=== PATIENT | female | born 1980 | race African-American/Black ===

== ENCOUNTER 2019-12-27 21:50 | Emergency (ER) | payer SELFPAY ==
[~2019-12-27] VITALS: Ht 154.9 cm; Wt 76.7 kg
--- NOTE | 2019-12-27 22:00 | NUR ---
PT CAME TO THE ER C/O MIDSTERNAL PRESSURE-LIKE TIGHT CHEST PAIN RD TO THE UPPER BACK AND ACROSS THE RIB AREA X 2 DAYS. WORSE TODAY. -SOB +LIGHTHEADED. PT AAOX4, VSS, RESPIRATIONS EVEN AND UNLABORED ON RA W/ NAD NOTED. PT CONNECTED TO THE GREEN [employer] VALUE ADDED ASSESSOR AND POX.
--- NOTE | 2019-12-27 22:04 | NUR ---
Natasha kellogg in [facility] - 12/27/19 at 2204 by SHANAE Patient discharged to home in stable condition. Written and verbal after care instructions given. Patient verbalizes understanding of instruction.
--- NOTE | 2019-12-27 22:19 | NUR ---
DR POLLOCK AT BEDSIDE
[2019-12-27] MEDS ORDERED: KETOROLAC TROMETHAMINE INJ 30 MG/ML VIAL ONE (22:22)
[2019-12-27] MEDS ORDERED: KETOROLAC TROMETHAMINE INJ 30 MG/ML VIAL IV ONE (22:30)
--- NOTE | 2019-12-27 22:34 | NUR ---
EKG AT BEDSIDE
--- NOTE | 2019-12-27 22:34 | NUR ---
BLOOD COLLECTED AND SENT TO LAB
[2019-12-27] MEDS ORDERED: diphenhydrAMINE HCL 50 MG/ML VIAL ONE (22:42)
[2019-12-27 22:51] LABS: BASOPHILS # (AUTO) 0.1 /CMM (0.0-0.2); BASOPHILS % (AUTO) 1.1 % (0.0-2.0); EOSINOPHILS % (AUTO) 2.2 % (0.0-6.0); HEMATOCRIT 36 % (33-45); HEMOGLOBIN 11.6 g/dL (11.5-14.8); LYMPHOCYTES # (AUTO) 2.6 /CMM (0.8-4.8); LYMPHOCYTES % (AUTO) 37.8 % (20.0-44.0); MEAN CORPUSCULAR HGB CONC 32 g/dl (31.0-36.0); MEAN CORPUSCULAR VOLUME 82 fL (82-100); MONOCYTES # (AUTO) 0.4 /CMM (0.1-1.30); MONOCYTES % (AUTO) 5.9 % (2.0-12.0); NEUTROPHILS # (AUTO) 3.6 /CMM (1.8-8.9); PLATELET COUNT (AUTO) 274 /CMM (150-450); RED BLOOD CELL COUNT(AUTO) 4.42 MIL/uL (4.0-5.2); WHITE BLOOD COUNT (AUTO) 6.8 K/uL (4.3-11.0)
[2019-12-27] MEDS ORDERED: diphenhydrAMINE HCL 50 MG/ML VIAL IV ONE (23:00)
[2019-12-27 23:09] LABS: CALCIUM, SERUM 8.7 mg/dL (8.5-10.1); CARBON DIOXIDE 25 mmol/L (21-32); CHLORIDE 103 mmol/L (98-107); CREATININE 0.8 mg/dL (0.6-1.3); GLUCOSE 101 mg/dL (74-106); POTASSIUM 3.8 mmol/L (3.5-5.1); SODIUM SERUM 139 mmol/L (136-145); UREA NITROGEN, BLOOD 5 mg/dL (7-18)
--- NOTE | 2019-12-28 00:01 | NUR ---
Patient discharged to home in stable condition. Written and verbal after care instructions given. Patient verbalizes understanding of instruction.IV removed. Catheter intact and site benign. Pressure and 4x4 applied to site. No bleeding noted.
[2019-12-28 00:02] VITALS: BP 135/79
== END 2019-12-28 00:02 | disposition home or self-care (01) ==
LOC: ER 21:50
DX: R07.89 Other chest pain (principal); M79.18 Myalgia, other site; R00.1 Bradycardia, unspecified; Z90.49 Acquired absence of other specified parts of digestive tract; Z41.1 Encounter for cosmetic surgery
CPT/HCPCS: 36415; 71045; 80048; 84484; 85025; 93005; 96374; 96375; 99285; J1200; J1885

== ENCOUNTER 2021-10-27 11:15 | Emergency (ER) | payer OTHER ==
[~2021-10-27] VITALS: Ht 154.9 cm; Wt 80.3 kg
--- NOTE | 2021-10-27 11:45 | NUR ---
Patient came in to the er c/o chest sharp pain radiating to R arm since yesterday. On room air, breathing evenly and unlabored. Kept comfortable, will continue to monitor accordingly.
[2021-10-27 12:34] LABS: BASOPHILS % (AUTO) 1.1 % (0.0-2.0); HEMATOCRIT 38 % (33-45); HEMOGLOBIN 12.3 g/dL (11.5-14.8); LYMPHOCYTES # (AUTO) 1.5 K/uL (0.8-4.8); LYMPHOCYTES % (AUTO) 35.2 % (20.0-44.0); MEAN CORPUSCULAR HGB CONC 33 g/dl (31.0-36.0); MEAN CORPUSCULAR VOLUME 77 fL (82-100); MONOCYTES # (AUTO) 0.3 K/uL (0.1-1.30); MONOCYTES % (AUTO) 7.5 % (2.0-12.0); NEUTROPHILS # (AUTO) 2.4 K/uL (1.8-8.9); NEUTROPHILS % (AUTO) 55.2 % (43.0-81.0); PLATELET COUNT (AUTO) 296 K/uL (150-450); WHITE BLOOD COUNT (AUTO) 4.3 K/uL (4.3-11.0)
[2021-10-27] MEDS ORDERED: KETOROLAC TROMETHAMINE INJ 30 MG/ML VIAL ONE (12:34)
[2021-10-27] MEDS: KETOROLAC TROMETHAMINE INJ 30 MG/ML VIAL IM ONE (12:35)
[2021-10-27 12:53] LABS: CALCIUM, SERUM 8.7 mg/dL (8.5-10.1); CARBON DIOXIDE 27 mmol/L (21-32); CHLORIDE 106 mmol/L (98-107); CREATININE 0.6 mg/dL (0.6-1.3); GLUCOSE 108 mg/dL (74-106); SODIUM SERUM 140 mmol/L (136-145); UREA NITROGEN, BLOOD 4 mg/dL (7-18)
[2021-10-27] MEDS ORDERED: TRAMADOL HCL 50 MG TABLET ONE (13:33)
[2021-10-27] MEDS: TRAMADOL HCL 50 MG TABLET PO ONE (13:38)
[2021-10-27] MEDS ORDERED: CT SWABBABLE VALVE TRANS SET 1 EA INFUS.SET MC ONE (14:07)
--- NOTE | 2021-10-27 14:27 | NUR ---
PT BACK FROM RADIOLOGY
[2021-10-27] MEDS ORDERED: HYDROCODONE/APAP 5/325MG TABLET ONE ×2 (15:11→17:39)
[2021-10-27] MEDS ORDERED: TRAM50TA2 PO (15:11)
[2021-10-27] MEDS ORDERED: IBUP-1955 PO (15:11)
[2021-10-27] MEDS: IV NS 0.9% 1,000 ML BAG IV ONE (15:45)
[2021-10-27] MEDS: HYDROCODONE/APAP 5/325MG TABLET PO ONE ×2 (15:52→17:43)
[2021-10-27] MEDS ORDERED: ONDANSETRON HCL/PF 4 MG/2 ML VIAL ONE (15:53)
[2021-10-27] MEDS: ONDANSETRON HCL/PF 4 MG/2 ML VIAL IV ONE (16:20)
[2021-10-27 16:37] LABS: CALCIUM, SERUM 8.7 mg/dL (8.5-10.1); CREATININE 0.7 mg/dL (0.6-1.3); POTASSIUM 3.6 mmol/L (3.5-5.1)
[2021-10-27 17:54] VITALS: BP 116/66
== END 2021-10-27 17:55 | disposition home or self-care (01) ==
LOC: ER 11:21
DX: R07.89 Other chest pain (principal); Z90.49 Acquired absence of other specified parts of digestive tract; Z98.82 Breast implant status
CPT/HCPCS: 99285; 96374; 71275; 71045; 96361; 96375; 93005 ×3; 85025; 80048 ×2; 85378; 36415; 84484 ×2; 83880; J1885; J2405; J7030

== ENCOUNTER 2023-02-28 13:40 | Emergency (ER) | payer OTHER ==
[~2023-02-28] VITALS: Ht 154.9 cm; Wt 76.7 kg
[~2023-02-28 13:40] MED LIST: IBUP-1955 PO; TRAM50TA2 PO
[2023-02-28] MEDS ORDERED: MORPHINE SULFATE INJ 2 MG/ML DISP.SYRIN IV ONE (15:00)
[2023-02-28] MEDS ORDERED: ONDANSETRON HCL/PF 4 MG/2 ML VIAL IVP ONE (15:00)
[2023-02-28] MEDS ORDERED: IV NS 0.9% 1,000 ML BAG IV ONE (15:00)
[2023-02-28 15:17] LABS: APPEARANCE,URINE SLIGHTLY CLOUDY (CLEAR); BILIRUBIN,URINE 1+ (NEGATIVE); BLOOD, URINE 2+ Ery/uL (NEGATIVE); COLOR,URINE YELLOW (YELLOW); KETONES,URINE 1+ mg/dL (NEGATIVE); LEUKOCYTE ESTERASE ,URINE NEGATIVE (NEGATIVE); NITRITE, URINE POSITIVE (NEGATIVE); PH,URINE 6.5 (5.0-8.0); PROTEIN,URINE 1+ mg/dl (NEGATIVE); UGLUCOSE NEGATIVE (NEGATIVE)
[2023-02-28] MEDS ORDERED: KETOROLAC TROMETHAMINE INJ 30 MG/ML VIAL IV ONE (15:30)
[2023-02-28 15:53] LABS: BASOPHILS # (AUTO) 0.1 K/uL (0.0-0.2); BASOPHILS % (AUTO) 1.3 % (0.0-2.0); EOSINOPHILS # (AUTO) 0.2 K/uL (0.0-0.7); EOSINOPHILS % (AUTO) 2.2 % (0.0-6.0); HEMATOCRIT 38 % (33-45); HEMOGLOBIN 12.5 g/dL (11.5-14.8); LYMPHOCYTES # (AUTO) 1.6 K/uL (0.8-4.8); LYMPHOCYTES % (AUTO) 22.8 % (20.0-44.0); MEAN CORPUSCULAR HEMOGLOBIN 26 PG (26.0-33.0); MEAN CORPUSCULAR HGB CONC 33 g/dl (31.0-36.0); MEAN CORPUSCULAR VOLUME 78 fL (82-100); MONOCYTES # (AUTO) 0.3 K/uL (0.1-1.30); MONOCYTES % (AUTO) 4.3 % (2.0-12.0); NEUTROPHILS % (AUTO) 69.4 % (43.0-81.0); PLATELET COUNT (AUTO) 301 K/uL (150-450); RED BLOOD CELL COUNT(AUTO) 4.89 MIL/uL (4.0-5.2); RED CELL DISTRIBUTION WIDTH 16.2 % (11.5-15.0); WHITE BLOOD COUNT (AUTO) 7.2 K/uL (4.3-11.0)
[2023-02-28 16:02] LABS: CREATININE 0.9 mg/dL (0.6-1.3); POTASSIUM 3.9 mmol/L (3.5-5.1)
[2023-02-28] MEDS ORDERED: KETOROLAC TROMETHAMINE 15 MG/ML VIAL ONE (16:03)
[2023-02-28] MEDS ORDERED: KETOROLAC TROMETHAMINE INJ 30 MG/ML VIAL ONE (16:04)
[2023-02-28 16:09] LABS: ADD URINE CULTURE YES; BACTERIA,URINE 2+ /HPF (None Seen); MUCUS,URINE Many /LPF (None Seen); RBC,URINE 21-50 /HPF (0-2); WBC,URINE 0-2 /HPF (0-3)
[2023-02-28 16:14] LABS: ALBUMIN 3.6 g/dL (3.4-5.0); BILIRUBIN,DIRECT 0.1 mg/dL (0.0-0.2); BILIRUBIN,TOTAL 0.4 mg/dL (0.2-1.0); TOTAL PROTEIN, SERUM 7.6 g/dL (6.4-8.2)
[2023-02-28 16:34] LABS: PREGNANCY TEST URINE QUAL NEGATIVE (NEGATIVE)
[2023-02-28] MEDS ORDERED: HYDROMORPHONE 1 MG/1 ML DISP.SYRIN ONE (18:24)
[2023-02-28] MEDS ORDERED: HYDROMORPHONE INJ 2 MG/ML DISP.SYRIN IV ONE (18:30)
[2023-02-28] MEDS ORDERED: OXYC-128 PO (20:01)
[2023-02-28 21:17] VITALS: BP 102/66; TEMP 98; O2SAT 99
== END 2023-02-28 21:17 | disposition home or self-care (01) ==
LOC: ER 14:21
DX: R10.2 Pelvic and perineal pain (principal); N93.8 Other specified abnormal uterine and vaginal bleeding; Z90.49 Acquired absence of other specified parts of digestive tract; Z88.8 Allergy status to other drugs, medicaments and biological substances
CPT/HCPCS: 99285; 74176; 96374; 76856; 96361; 96375; 85025; 80048; 87086; 80076; 84703; 81001; 36415; 84702; J1885; J1170